=== PATIENT | male | born 1980 | race Hispanic/Latino ===

== ENCOUNTER 2018-03-21 13:47 | Emergency (ER) | payer OTHER ==
[~2018-03-21] VITALS: Ht 167.6 cm; Wt 80.7 kg
[~2018-03-21 13:47] MED LIST: DOXYCYCLINE HY100 M2 PO; IBUPROFEN800 M1 PO; KETOROLAC TROME10 M1 PO; NORCO 5-325 TA1 EACH PO; ROBAXIN-750750 M1 PO
[2018-03-21 15:19] LABS: ABSOLUTE BASOPHIL COUNT 0.1 /CUMM (0.0-0.2); ABSOLUTE EOSINOPHIL COUNT 0.1 /CUMM (0.0-0.7); ABSOLUTE LYMPH COUNT 2.8 /CUMM (1.2-3.4); ABSOLUTE MONOCYTE COUNT 0.7 /CUMM (0.10-0.60); BASOPHIL % 0.6 % (0.0-2.0); EOSINOPHIL % 0.7 % (0-5); HEMATOCRIT 44.6 % (42-52); MEAN CORPUSCULAR HGB 26.1 PG (27.0-31.0); MEAN CORPUSCULAR VOLUME 79.1 FL (80.0-94.0); MEAN PLATELET VOLUME 8.9 FL (7.4-10.4); PLATELET COUNT 298 /CUMM (130-400); RBC DISTRIBUTION WIDTH 15.3 % (11.5-14.5); RED BLOOD CELL CT 5.64 /CUMM (4.70-6.10); WHITE BLOOD CELL COUNT 10.6 /CUMM (4.8-10.8)
--- NOTE | 2018-03-21 16:33 | RADIOLOGY REPORT ---
PA AND LATERAL CHEST RADIOGRAPH CLINICAL INFORMATION: Chest pain COMPARISON: None available. TECHNIQUE: 2 views of the chest were obtained. FINDINGS: Symmetric lung inflation. There is no focal consolidation, pleural effusion, or pneumothorax. Cardiac silhouette size is normal. There are no acute osseous findings. IMPRESSION: No acute pulmonary process.
--- NOTE | 2018-03-21 16:51 | ED CARDIAC/CP/PALPITATIONS ---
History of Present Illness General Chief Complaint: Chest Pain Stated Complaint: CP, SOB SENT FROM URGENT CARE Source: patient, old records Exam Limitations: no limitations Vital Signs & Intake/Output Vital Signs & Intake/Output Vital Signs Date Time Temp Pulse Resp B/P B/P Pulse O2 O2 Flow FiO2 Mean Ox Delivery Rate 03/21 1708 98.3 72 15 129/84 100 Room Air Room Air 03/21 1358 97.2 79 18 116/78 99 Room Air Allergies Coded Allergies: shellfish derived (Intermediate, HIVES 03/21/18) Reconcile Medications Hydrocodone/Acetaminophen (Lulu 5-325 Tablet) 5 MG-325 MG TABLET 1 TAB PO Q6H PRN PRN PAIN Ibuprofen 800 MG TABLET 1 TAB PO TID PRN PAIN Methocarbamol (Robaxin-750) 750 MG TABLET 1 TAB PO TID PRN PAIN Naproxen 500 MG TABLET 1 TAB PO BID PRN pain Oxycodone HCl/Acetaminophen (Percocet 5-325 MG Tablet) 5 MG-325 MG TABLET 1 TAB PO BID pain Triage Note: PT TO ER FROM URGENT CARE C/C INTERMITTENT CHEST PAIN RADIATING TO LEFT SHOULDER BLADE X 1 YEAR. DENIES N/V/D OR SOB. PAIN 05/14 Triage Nurses Notes Reviewed? yes Onset: Gradual Duration: intermittent, x 1 year Timing: recent history Quality/Severity: mild (aching) Location: left chest wall Radiation: shoulders Activities at Onset: none Prior Chest Pain/Card Workup: no prior chest pain Aspirin Today: no aspirin today Associated Symptoms: denies HPI: 38-year-old male presents to ER for evaluation complaining of intermittent left- sided chest pain rating to the left shoulder and into his back for the past 1 year. Symptoms come on randomly asking for a few seconds. Pain is reproducible palpation no numbness or tingling in his arm. No family history of sudden cardiac disease. He denies shortness of breath cough. He is a smoker he denies drug use. He is not taken anything for symptoms are sought care until today. (Valerie STARKS,Aureliano) Past History Travel History Traveled to [place] past 21 day No Medical History Any Pertinent Medical History? see below for history Psychiatric: anxiety Tetanus Vaccine: 09/09/17 Surgical History Surgical History: non-contributory Psychosocial History What is your primary language Indonesian Tobacco Use: Current Daily Use Daily Tobacco Use Amount/Type: => 5 Cigarettes daily Family History Hx Contributory? No (Aureliano Lucero) Review of Systems Review of Systems Constitutional: Reports: see HPI. Comments Review of systems: See HPI, All other systems negative. Constitutional, no chills no fever HEENT: no sore throat no congestion Cardiovascular: chest pain Skin: no rashes, no change in skin Respiratory: No dyspnea no cough no sputum GI: No nausea no vomiting, : No dysuria No hematuria, no frequency Muscle skeletal: No joint pain, no back pain, no neck pain, Neurologic: , no headache Heme/endocrine: No bruising (Aureliano Lucero) Physical Exam Physical Exam General Appearance: well developed/nourished, no apparent distress, alert, awake Cardiovascular: regular rate/rhythm Comments: Well-developed well-nourished person in no acute distress HEENT: Normal EENT exam; PERRL, EOMI. HEAD is atraumatic. moist mucous membranes. Neck: Supple, normal range of motion Back: Nontender, Full range of motion Cardiovascular: Regular rate and rhythms no murmurs rubs Respiratory: Chest tender to palpation left chest wall,.There were no bony deformities, no asymmetry. No respiratory distress. Patient speaking in full complete sentences. Breath sounds clear to auscultation bilaterally: NO W/R/R Abdomen: Soft, nontender nondistended Extremity: No edema, full range of motion of extremities Neuro: Alert oriented x3, motor sensory normal, There were no obvious focal neurologic abnormalities. Skin: No appreciable rash on exposed skin, skin is warm and dry. Psych: Mood and affect is normal, memory and judgment is normal. Core Measures ACS in differential dx? Yes CVA/TIA Diagnosis No Sepsis Present: No Sepsis Focused Exam Completed? No (Aureliano Lucero) Progress Differential Diagnosis: AMI, atrial fibrillation, costochondritis, myocarditis, pericarditis, pneumonia, pneumothorax, pulmonary embolism, unstable angina Plan of Care: Orders Procedure Date/time Status TROPONIN LEVEL 03/21 1350 Complete COMPREHENSIVE METABOLIC PANEL 03/21 1350 Complete CBC WITHOUT DIFFERENTIAL 03/21 1350 Complete EKG 03/21 1349 Active Laboratory Tests 03/21/18 1515: Anion Gap 11, Estimated GFR > 60, BUN/Creatinine Ratio 13.0, Glucose 92, Calcium 9.4, Total Bilirubin 0.4, AST 25, ALT 35, Alkaline Phosphatase 83, Troponin I < 0.01, Total Protein 7.8, Albumin 4.4, Globulin 3.4, Albumin/Globulin Ratio 1.3, CBC w Diff NO MAN DIFF REQ, RBC 5.64, MCV 79.1 L, MCH 26.1 L, MCHC 33.0, RDW 15.3 H, MPV 8.9, Gran % 66.0, Lymphocytes % 26.5, Monocytes % 6.2, Eosinophils % 0.7, Basophils % 0.6, Absolute Granulocytes 7.0 H, Absolute Lymphocytes 2.8, Absolute Monocytes 0.7 H, Absolute Eosinophils 0.1, Absolute Basophils 0.1 1650 labs and x-ray ordered from triage discussed with the patient relief of his labs x-ray findings. Patient is resting in no acute distress, perc negative Diagnostic Imaging: Viewed by Me: Radiology Read. Discussed w/RAD: Radiology Read. Radiology Impression: PATIENT: HAO TERRY PRESENT AGE: 38 PATIENT ACCOUNT NO: [id number] : 80 LOCATION: [facility] ORDERING PHYSICIAN: Jas STARKS SERVICE DATE: 03/21/18 EXAM TYPE: RAD - XRY-CHEST XRAY, TWO VIEWS PA AND LATERAL CHEST RADIOGRAPH CLINICAL INFORMATION: Chest pain COMPARISON: None available. TECHNIQUE: 2 views of the chest were obtained. FINDINGS: Symmetric lung inflation. There is no focal consolidation, pleural effusion, or pneumothorax. Cardiac silhouette size is normal. There are no acute osseous findings. IMPRESSION: No acute pulmonary process. DICTATED BY: Satya Castillo MD DATE/TIME DICTATED:03/21/181626 RADIO INSTALLER AUTOMOBILE:GUILLE DATE/TIME TRANSCRIBED:03/21/181626 CONFIDENTIAL, DO NOT COPY WITHOUT APPROPRIATE AUTHORIZATION. <Electronically signed in Other Vendor System> SIGNED BY: Satya Castillo MD 03/21/18 1633 Pre-Hospital EKG: normal sinus rhythm (lad) Initial ED EKG: nsr at 70, no acute st seg changes, lad (Aureliano Lucero) Departure Departure Time of Disposition: 1657 Disposition: HOME OR SELF CARE Condition: Stable Clinical Impression Primary Impression: Atypical chest pain Referrals: Roberto UMANZOR,Alfonzo Dugan (PCP/Family) Poonam UMANZOR,Cristo Additional Instructions: Rest interchange ice and heat. Follow-up with your primary care physician or orthopedist Dr. corea. Percocet for breakthrough pain. Naproxen as directed ice your shoulder as needed return with any concerns. These prescriptions were sent to the [place] pharmacy Departure Forms: Customer Survey General Discharge Information Prescriptions: Current Visit Scripts Oxycodone HCl/Acetaminophen (Percocet 5-325 MG Tablet) 1 TAB PO BID #8 TAB Naproxen 1 TAB PO BID PRN pain #30 TAB (Aureliano Lucero) PA/LENS INSERTER Co-Sign Statement Statement: ED Attending supervision documentation- [] I saw and evaluated the patient. I have also reviewed all the pertinent lab results and diagnostic results. I agree with the findings and the plan of care as documented in the PA's/LENS INSERTER's documentation. [X] I have reviewed the ED Record and agree with the PA's/LENS INSERTER's documentation. [] Additions or exceptions (if any) to the PAs/LENS INSERTER's note and plan are summarized below: [] (Felipe UMANZOR,Jean Marie Ryder) Critical Care Note Critical Care Note Critical Care Time: non-applicable (Aureliano Lucero)
[2018-03-21] MEDS ORDERED: PERCOCET 5-3251 EACH PO (16:59)
[2018-03-21] MEDS ORDERED: NAPROXEN500 M2 PO (16:59)
[2018-03-21 17:08] VITALS: BP 129/84
== END 2018-03-21 17:09 ==
LOC: ERH 13:47
PROVIDERS: Physician Assistant Medical
DX: R07.89 Other chest pain (principal)
CPT/HCPCS: 71046; 93005; 93010

== ENCOUNTER 2018-07-17 10:52 | Emergency (ER) | payer OTHER ==
[~2018-07-17] VITALS: Ht 167.6 cm; Wt 81.6 kg
[~2018-07-17 10:52] MED LIST changes: +NAPROXEN500 M2 PO; +PERCOCET 5-3251 EACH PO
[2018-07-17 11:29] LABS: ABSOLUTE BASOPHIL COUNT 0.1 /CUMM (0.0-0.2); ABSOLUTE EOSINOPHIL COUNT 0.1 /CUMM (0.0-0.7); ABSOLUTE GRANULOCYTE CT 7.7 /CUMM (1.4-6.5); ABSOLUTE LYMPH COUNT 2.7 /CUMM (1.2-3.4); ABSOLUTE MONOCYTE COUNT 0.5 /CUMM (0.10-0.60); BASOPHIL % 0.6 % (0.0-2.0); EOSINOPHIL % 0.6 % (0-5); HEMATOCRIT 44.5 % (42-52); MEAN CORPUSCULAR HGB 26.8 PG (27.0-31.0); MEAN CORPUSCULAR HGB CONC 33.5 G/DL (33.0-37.0); MEAN CORPUSCULAR VOLUME 79.8 FL (80.0-94.0); MEAN PLATELET VOLUME 8.8 FL (7.4-10.4); PLATELET COUNT 242 /CUMM (130-400); RBC DISTRIBUTION WIDTH 14.6 % (11.5-14.5); RED BLOOD CELL CT 5.57 /CUMM (4.70-6.10); WHITE BLOOD CELL COUNT 11.1 /CUMM (4.8-10.8)
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
--- NOTE | 2018-07-17 12:56 | RADIOLOGY REPORT ---
EXAMINATION: XR LUMBOSACRAL SPINE CLINICAL INFORMATION: Bilateral leg and back pain. COMPARISON: None TECHNIQUE: 4 views of the lumbosacral spine were obtained. FINDINGS: The lumbar vertebra have normal density, height and alignment. The disc spaces are well-preserved. There is mild anterior traction osteophyte formation at L3-L4. No evidence of degenerative disc disease, fracture or subluxation. The sacrum and sacroiliac joints are normal. IMPRESSION: - No acute pathology within the lumbosacral spine. - Mild spondylosis deformans at L3-L4.
[2018-07-17 13:21] VITALS: BP 136/82
== END 2018-07-17 13:21 ==
LOC: ERH 10:52
PROVIDERS: Physician Assistant Medical
DX: M79.1 Myalgia (principal); M79.604 Pain in right leg; M79.605 Pain in left leg; M54.5 Low back pain; F17.210 Nicotine dependence, cigarettes, uncomplicated
CPT/HCPCS: 86618; 87476; 72110; 96372